=== PATIENT | male | born 1960 | race Caucasian/White ===

== ENCOUNTER → 2018-07-07 | Outpatient (CLI) | payer OTHER, BC ==
[2018-07-07 13:50] LABS: APPEARANCE,URINE CLEAR; BILIRUBIN,URINE NEGATIVE (NEGATIVE); COLOR,URINE STRAW; GLUCOSE, URINE NEGATIVE (NEGATIVE); KETONES,URINE NEGATIVE (NEGATIVE); LEUKOCYTE ESTERASE,URINE NEGATIVE (NEGATIVE); NITRITE,URINE NEGATIVE (NEGATIVE); PROTEIN,URINE NEGATIVE (NEGATIVE); URINE SPECIFIC GRAVITY 1.004; UROBILINOGEN,URINE NEGATIVE mg/dL (<2.0)
[2018-07-07 14:01] LABS: ABSOLUTE BASOPHILS # (AUTO) 0.1 10^3/uL (0.0-0.2); ABSOLUTE EOSINOPHILS # (AUTO) 0.3 10^3/uL (0.0-0.6); ABSOLUTE LYMPHOCYTES (AUTO) 2.5 10^3/uL (0.5-4.7); ABSOLUTE MONOCYTES (AUTO) 0.6 10^3/uL (0.1-1.4); ABSOLUTE NEUT (AUTO) 4.7 10^3/uL (1.7-8.2); EOSINOPHILS % (AUTO) 3.1 % (0-6); HEMATOCRIT 49.6 % (37.9-51.0); HEMOGLOBIN 17.2 g/dL (13.5-17.0); LYMPHOCYTES % (AUTO) 30.3 % (13-45); MEAN CORPUSCULAR HGB CONC 34.7 g/dL (32.0-36.0); MEAN CORPUSCULAR VOLUME 84 fl (80-97); MONOCYTES % (AUTO) 7.5 % (3-13); PLATELET COUNT 247 10^3/uL (150-450); RED BLOOD COUNT 5.92 10^6/uL (4.35-5.55); RED CELL DISTRIBUTION WIDTH 14.2 % (11.5-14.0); SEGMENTED NEUTROPHILS % (AUTO) 58.1 % (42-78); TOTAL CELLS COUNTED % (AUTO) 100 %; WHITE BLOOD COUNT 8.1 10^3/uL (4.0-10.5)
[2018-07-07 14:07] LABS: PROTHROMBIN TIME 13.7 SEC (11.4-15.4)
[2018-07-07 14:08] LABS: PARTIAL THROMBOPLASTIN TIME 30.9 SEC (23.5-35.8)
== END ==
LOC: OD 13:21
PROVIDERS: ATTEND Pain Medicine Interventional Pain Medicine
DX: M54.17 Radiculopathy, lumbosacral region (principal); Z79.01 Long term (current) use of anticoagulants
CPT/HCPCS: 36415; 81001; 85025; 85610; 85730

== ENCOUNTER 2018-08-09 06:00 | Day surgery (SDC) | payer BC, OTHER ==
[2018-08-04 09:13] LABS: HEMATOCRIT 49.5 % (37.9-51.0); HEMOGLOBIN 16.8 g/dL (13.5-17.0); MEAN CORPUSCULAR HEMOGLOBIN 28.5 pg (27.0-33.4); MEAN CORPUSCULAR HGB CONC 33.9 g/dL (32.0-36.0); MEAN CORPUSCULAR VOLUME 84 fl (80-97); PLATELET COUNT 239 10^3/uL (150-450); RED CELL DISTRIBUTION WIDTH 14.2 % (11.5-14.0); WHITE BLOOD COUNT 8.5 10^3/uL (4.0-10.5)
[2018-08-04 09:17] LABS: APPEARANCE,URINE CLEAR; BILIRUBIN,URINE NEGATIVE (NEGATIVE); COLOR,URINE YELLOW; GLUCOSE, URINE NEGATIVE (NEGATIVE); INTERNATIONAL RATION (INR) 1.06; KETONES,URINE NEGATIVE (NEGATIVE); LEUKOCYTE ESTERASE,URINE NEGATIVE (NEGATIVE); NITRITE,URINE NEGATIVE (NEGATIVE); PROTEIN,URINE NEGATIVE (NEGATIVE); PROTHROMBIN TIME 14.4 SEC (11.4-15.4); URINE SPECIFIC GRAVITY 1.017; UROBILINOGEN,URINE NEGATIVE mg/dL (<2.0)
[2018-08-04 09:18] LABS: PARTIAL THROMBOPLASTIN TIME 31.5 SEC (23.5-35.8)
--- NOTE | 2018-08-04 09:29 | EKG REPORT ---
SEVERITY:- NORMAL ECG - SINUS RHYTHM : Confirmed by: Mervin Flynn 04-Aug-2018 09:29:12
--- NOTE | 2018-08-04 10:25 | RADIOLOGY REPORT (SQ) ---
EXAM DESCRIPTION: CHEST PA/LATERAL COMPLETED DATE/TIME: 08/04/2018 8:38 am REASON FOR STUDY: PRE-OP COMPARISON: None. EXAM PARAMETERS: NUMBER OF VIEWS: two views TECHNIQUE: Digital Frontal and Lateral radiographic views of the chest acquired. RADIATION DOSE: NA LIMITATIONS: none FINDINGS: LUNGS AND PLEURA: No opacities, masses or pneumothorax. No pleural effusion. MEDIASTINUM AND HILAR STRUCTURES: Calcified hilar nodes on the right. HEART AND VASCULAR STRUCTURES: Heart normal size. No evidence for failure. BONES: No acute findings. HARDWARE: None in the chest. OTHER: No other significant finding. IMPRESSION: NO SIGNIFICANT RADIOGRAPHIC FINDING IN THE CHEST. TECHNICAL DOCUMENTATION: JOB ID: [id number] [employer]- All Rights Reserved Reading location - IP/workstation name: [email or web address]
[~2018-08-09 06:00] MED LIST: CEFAZOLIN 1 GM/D5W RTU 1 GM/50 ML RTUPB IV ONE
[2018-08-09] MEDS ORDERED: PROPOFOL INJ 200 MG/20 ML VIAL IV ONE (06:15)
[2018-08-09] MEDS ORDERED: FENTANYL CITRATE INJ/PF 100 MCG/2 ML AMPUL ONE (06:15)
[2018-08-09] MEDS ORDERED: MIDAZOLAM 2 MG/2 ML INJ ONE (06:15)
[2018-08-09] MEDS ORDERED: LIDOCAINE 0.5% INJ-PF (5 MG/ML) 50 ML SDV ONE (06:16)
[2018-08-09] MEDS ORDERED: BUPIVACAINE HCL 0.5%-EPI 1:200000 INJ/PF 30 ML VIAL ONE (07:56)
[2018-08-09] MEDS ORDERED: LIDOCAINE 1% INJ-PF (10 MG/ML) 30 ML SDV ONE (07:56)
[2018-08-09] MEDS ORDERED: SODIUM BICARBONATE 4.2% INJ (2.5 MEQ/5 ML) VIAL ONE (07:56)
[2018-08-09] MEDS ORDERED: MEPERIDINE HCL/PF INJ 25 MG/1 ML DISP.SYRIN IV PRN (08:27)
[2018-08-09] MEDS ORDERED: FENTANYL CITRATE INJ/PF 100 MCG/2 ML AMPUL IV PRN ×3 (08:27)
[2018-08-09] MEDS ORDERED: ONDANSETRON HCL INJ/PF 4 MG/2 ML SDV IV PRN (08:27)
[2018-08-09] MEDS ORDERED: PROMETHAZINE HCL INJ 25 MG/1 ML VIAL IV PRN ×2 (08:27)
[2018-08-09] MEDS ORDERED: MORPHINE SULFATE 10 MG/ML INJ IV PRN (08:27)
[2018-08-09] MEDS ORDERED: DIPHENHYDRAMINE HCL 50 MG/ML VIAL IV PRN (08:27)
[2018-08-09] MEDS ORDERED: CEFAZOLIN INJ 1 GM VIAL ONE (09:43)
[2018-08-09] MEDS ORDERED: OXYCODONE-ACETAMINOPHEN 5-325 MG TABLET PO PRN (09:56)
[2018-08-09] MEDS ORDERED: OXYCODONE-ACETAMINOPHEN 5-325 MG TABLET ONE (10:13)
--- NOTE | 2018-08-09 10:29 | OPERATIVE REPORT E ---
Operative Report NAME: JAZZ COLE : 1960 AGE: 57Y DATE OF SURGERY: 08/09/2018 ROOM: PREOPERATIVE DIAGNOSIS: LUMBAR RADICULOPATHY WITH CHRONIC BACK AND LOWER EXTREMITY PAIN. POSTOPERATIVE DIAGNOSIS: LUMBAR RADICULOPATHY WITH CHRONIC BACK AND LOWER EXTREMITY PAIN. SURGEON: MADHURI DOWLING M.D. ANESTHESIA: MAC BLOOD LOSS: Minimal. TISSUE REMOVED OR ALTERED: None. INDICATIONS: Positive trial to outpatient spinal cord stimulation. COMPLICATIONS: None. PROCEDURE: After obtaining informed consent, advising the patient of the risks and benefits including serious neurological injury, bleeding and infection, allergic reaction, paralysis, failure to obtain pain relief, aggravation of pain, allergic reaction and , he was taken to the operating room and placed comfortably in the prone position. Comfort was assessed visually and verbally. MAC anesthesia was administered. Monitors were applied. He was prepped with chlorhexidine over the appropriate area of the thoracolumbar and sacral spine region. Appropriate drying time was allowed, followed by sterile draping. He was then evaluated under fluoroscopy and this was marked in site using a lumbar midline incision was identified with an intended epidural entrance site at T12-L1. It should be noted the battery site was preselected over the left flank region prior to entering into the operating room. Once surgical site was identified, the skin at both regions was anesthetized with 1% lidocaine with bicarb followed by 0.25% Bupivacaine with epinephrine. Beginning in the midline, sharp and blunt dissection were performed down to the lumbar fascia without difficulty. Hemostasis was obtained with electrocautery as necessary. Once a suitable working zone was created, Balbir retractor was placed. The paraspinal musculature was then anesthetized down to the T12-L1 interspace with 1% lidocaine using a 22-gauge spinal needle. A 14-gauge Touhy needle was inserted first on the right side, entering into the epidural space with the iymp-cq-sgscqutlsg to saline technique. He tolerated this well. No heme, cerebrospinal fluid, or paresthesias were noted. The Octrode was then advanced easily into the posterior midline region. This was repeated on the left side in the same fashion without difficulty. The leads were advanced up to the bottom of T8 in the para midline location. Trial of stimulation was performed. Some lead repositioning was necessary for the left lead. Stimulation was obtained with multiple settings. Decision was made to proceed with the implant. Then 0-Mersilene ties were placed around the needle, followed by distal stay sutures using the same material. The left needle was removed with care being taken not to dislodge the electrode. The anchor was placed over the electrode and secured in place with the 0-Mersilene pursestring and stay suture. This was repeated on the right side. Lead positions were checked in AP and lateral views and remained in satisfactory location. This wound was copiously irrigated with betadine-containing irrigation solution. Small loops were placed in the electrodes to secure them and allow strain relief. Attention was then directed towards the flank incision which had already been anesthetized. Sharp and blunt dissection were performed down to create a suitable spot for the pulse generator. Hemostasis was obtained with electrocautery as necessary. The subcutaneous tissue was then anesthetized with 1% lidocaine from the pulse generator pocket to the midline incision. The leads were then tunneled to the generator with the left lead being marked to identify it once passed through the tunneling tool. The leads were connected to the generator and checked for connectivity followed by impedance. These were all satisfactory. The hex nuts were then secured. All wounds were then copiously irrigated. The pulse generator was placed into the pocket with the excess lead being coiled behind the pulse generator. The midline incision was then closed with 2 layers, the first layer with 2-0 Vicryl in an inverted vertical mattress suture. The skin was then closed with a running subcuticular 3-0 Polysorb. The flank incision was closed with a single layer of inverted vertical mattress sutures using 2-0 Polysorb. All wounds were then closed with Dermabond tape followed by cement. When this was dried, Telfa and Tegaderm were placed. He was then taken to the PACU for further postoperative care and monitoring. He remained neurologically and hemodynamically stable. DICTATING PHYSICIAN: MADHURI DOWLING M.D. [id number] PHY#: [id number] ID: [id number] JOB#: [id number] ACCT: [id number] cc:MADHURI DOWLING M.D. >
[2018-08-09 11:09] VITALS: BP 112/66
--- NOTE | 2018-08-09 15:54 | RADIOLOGY REPORT (SQ) ---
EXAM DESCRIPTION: NO CHG FLUORO; THORACOLUMBAR SPINE AP/LAT COMPLETED DATE/TIME: 08/09/2018 3:09 pm REASON FOR STUDY: SPINAL STIMULATOR PLCMT ASST WITH FLUORO IN OR G89.4 CHRONIC PAIN SYNDROME COMPARISON: None. FLUOROSCOPY TIME: 2.3 minutes 11 images saved to PACS. TECHNIQUE: Intra-operative images acquired during surgical procedure to evaluate progress. NUMBER OF IMAGES: 11 LIMITATIONS: None. FINDINGS: Placement of neurostimulator. Leads state and from T9-T11 IMPRESSION: IMAGE(S) OBTAINED DURING PROCEDURE. COMMENT: Quality ID [id number]: Final reports for procedures using fluoroscopy that document radiation exp osure indices, or exposure time and number of fluorographic images (if radiation exposure indices are not available) Please consult full operative report of the attending physician for description of the procedure. TECHNICAL DOCUMENTATION: JOB ID: [id number] [employer]- All Rights Reserved Reading location - IP/workstation name: [email or web address]
--- NOTE | 2018-08-09 15:54 | RADIOLOGY REPORT (SQ) ---
EXAM DESCRIPTION: NO CHG FLUORO; THORACOLUMBAR SPINE AP/LAT COMPLETED DATE/TIME: 08/09/2018 3:09 pm REASON FOR STUDY: SPINAL STIMULATOR PLCMT ASST WITH FLUORO IN OR G89.4 CHRONIC PAIN SYNDROME COMPARISON: None. FLUOROSCOPY TIME: 2.3 minutes 11 images saved to PACS. TECHNIQUE: Intra-operative images acquired during surgical procedure to evaluate progress. NUMBER OF IMAGES: 11 LIMITATIONS: None. FINDINGS: Placement of neurostimulator. Leads state and from T9-T11 IMPRESSION: IMAGE(S) OBTAINED DURING PROCEDURE. COMMENT: Quality ID [id number]: Final reports for procedures using fluoroscopy that document radiation exp osure indices, or exposure time and number of fluorographic images (if radiation exposure indices are not available) Please consult full operative report of the attending physician for description of the procedure. TECHNICAL DOCUMENTATION: JOB ID: [id number] [employer]- All Rights Reserved Reading location - IP/workstation name: [email or web address]
== END 2018-08-09 11:05 | disposition home or self-care (01) ==
LOC: OROUT 06:00
PROVIDERS: ATTEND Pain Medicine Interventional Pain Medicine
DX: M54.17 Radiculopathy, lumbosacral region (principal); G89.4 Chronic pain syndrome; G47.30 Sleep apnea, unspecified; F17.210 Nicotine dependence, cigarettes, uncomplicated; Z85.46 Personal history of malignant neoplasm of prostate; Z79.899 Other long term (current) drug therapy; Z79.51 Long term (current) use of inhaled steroids; Z87.891 Personal history of nicotine dependence
CPT/HCPCS: 93005; 36415; 85027; 85610; 85730; 81001; 71046; 72080; 93010; 63685; 63650; C1778; J2250; J3490 ×4; J0690 ×2; J3010; J2704; 300

== ENCOUNTER → 2019-08-01 | Outpatient (CLI) | payer BC, OTHER ==
[2019-08-01 13:08] LABS: ABSOLUTE BASOPHILS # (AUTO) 0.1 10^3/uL (0.0-0.2); ABSOLUTE EOSINOPHILS # (AUTO) 0.2 10^3/uL (0.0-0.6); ABSOLUTE LYMPHOCYTES (AUTO) 1.7 10^3/uL (0.5-4.7); ABSOLUTE MONOCYTES (AUTO) 0.6 10^3/uL (0.1-1.4); ABSOLUTE NEUT (AUTO) 5.2 10^3/uL (1.7-8.2); BASOPHILS % (AUTO) 0.7 % (0-2); EOSINOPHILS % (AUTO) 2.9 % (0-6); HEMATOCRIT 42.6 % (37.9-51.0); HEMOGLOBIN 14.9 g/dL (13.5-17.0); LYMPHOCYTES % (AUTO) 21.9 % (13-45); MEAN CORPUSCULAR HEMOGLOBIN 29.2 pg (27.0-33.4); MEAN CORPUSCULAR HGB CONC 34.9 g/dL (32.0-36.0); MEAN CORPUSCULAR VOLUME 84 fl (80-97); MONOCYTES % (AUTO) 8.1 % (3-13); PLATELET COUNT 191 10^3/uL (150-450); RED BLOOD COUNT 5.09 10^6/uL (4.35-5.55); RED CELL DISTRIBUTION WIDTH 14.5 % (11.5-14.0); SEGMENTED NEUTROPHILS % (AUTO) 66.4 % (42-78); TOTAL CELLS COUNTED % (AUTO) 100 %; WHITE BLOOD COUNT 7.8 10^3/uL (4.0-10.5)
[2019-08-01 14:31] LABS: FOLATE 8.21 ng/mL (>2.76)
== END ==
LOC: OD 12:33
PROVIDERS: ATTEND Nurse Practitioner Family
DX: M79.2 Neuralgia and neuritis, unspecified (principal)
CPT/HCPCS: 36415; 82607; 82746; 85025